=== PATIENT | female | born 1970 | race Caucasian/White ===

== ENCOUNTER 2019-02-24 10:16 | Day surgery (SDC) | payer OTHER, SELFPAY ==
[2019-02-24] VITALS (8 sets, daily range): BP systolic 111–143; BP diastolic 71–86; PULSE 67–98; RESP 10–17; TEMP 36.2–36.7; O2SAT 92–100; BMI 35.2
--- NOTE | 2019-02-24 | PATH_ITS ---
[facility] Accession Number: [id number] . 01 Material submitted: . PART A: small bowel - SMALL BOWEL BIOPSY PART B: gastrointestinal site - STOMACH BIOPSY . 02 Diagnosis: A. Small Bowel, Biopsy: Small bowel mucosa with no diagnostic abnormality. Negative for active inflammation, dysplasia, and malignancy. . B. Stomach, Biopsy: Antral and body-type mucosa with no diagnostic abnormality. Negative for Helicobacter organisms by immunohistochemistry. Negative for intestinal metaplasia by alcian blue stain. Negative for dysplasia and malignancy. MRV 02/26/2019 1453 Local . 02 Electronically signed: . Yumiko Britton MD, Pathologist NPI- [id number] . 01 Gross description: . Part A: SMALL BOWEL BIOPSY: Received in formalin are 2 fragment(s) of hung, soft tissue measuring 0.1 x 0.1 x 0.1 cm to 0.3 x 0.2 x 0.2 cm submitted entirely in 1 cassette(s) Part B: STOMACH BIOPSY: Received in formalin are 3 fragment(s) of hung, soft tissue measuring 0.1 x 0.1 x 0.1 cm to 0.2 x 0.2 x 0.1 cm submitted entirely in 1 cassette(s) /[facility] [place] 02/24/2019 2222 Local . 02 Microscopic: . B. An immunohistochemical stain was performed to evaluate for Helicobacter organisms and is negative. The control stain showed appropriate reactivity. An alcian blue stain was performed to evaluate for intestinal metaplasia and is negative. The control stain showed appropriate reactivity. . * This test was developed and its performance characteristics determined by [employer]. It has not been cleared or approved by the U.S. Food and Drug Administration. The FDA has determined that such clearance or approval is not necessary. This test is used for clinical purposes. It should not be regarded as investigational or for research. . 02 Pathologist provided ICD-10: K21.9 . 02 CPT . 519181, 284428, 982006, N81950 Specimen Comment: A duplicate report has been generated due to demographic updates. Performed at: 01 [facility] [address] [place] [address], [place], [place] [id number] MD Chinedu Shea MD Phone: [phone] Performed at: [facility] [address] [place], [place] [id number] MD Yumiko Britton MD Phone: [phone]
[2019-02-24] MEDS: SODIUM CHLORIDE 0.9% 1,000 ML 21 ML IV (10:59)
--- NOTE | 2019-02-24 11:35 | PM.HP.1 ---
History of Present Illness History of Present Illness Chief complaint: [id number] Patient History Medical History (Updated 02/24/19 @ 11:36 by Jareth Galvin MD) Endometriosis (Acute) Family & Social History Social History: household members family Meds Home Medications and Allergies Home Medications Medication Instructions Recorded Confirmed Type hydrochlorothiazide 12.5 mg PO DAILY 02/24/19 02/24/19 History lisinopril 10 mg PO DAILY 02/24/19 02/24/19 History naproxen sodium [Aleve] 220 mg PO DAILY 02/24/19 02/24/19 History naproxen-diphenhydramine [Aleve PM] 1 tab PO BEDTIME 02/24/19 02/24/19 History rabeprazole 20 mg PO DAILY 02/24/19 02/24/19 History Allergies Allergy/AdvReac Type Severity Reaction Status Date / Time No Known Drug Allergies Allergy Verified 02/24/19 10:39 Exam Vital Signs (past 8 hours): - 02/24/19 10:44 Temperature 97.3 F L Pulse Rate 67 Respiratory Rate 16 Blood Pressure 111/76 Pulse Oximetry 99 Oxygen Delivery Method Room Air Narrative Exam Narrative: Oropharynx free of lesions Chest clear to auscultation percussion Cardiac exam reveals no S3 or murmur Assessment & Plan Assessment & Plan narrative: Recurrent abdominal discomfort with history of H pylori rule out continued H pylori rule out celiac Upper endoscopy 0 performed with biopsies. Risks, benefits, alternatives have been explained.
--- NOTE | 2019-02-24 11:37 | PM.OP.ENDO ---
Operative Date/Time/Diagnoses Date of procedure: 02/24/19 Time of procedure: 11:37 Pre-op diagnosis: See indication and findings Procedure & Clinicians Study performed: EGD with biopsy Indications: Abdominal discomfort a history of H pylori rule out celiac Surgeon: Jareth Galvin Procedure Notes Procedure in detail: After informed consent was obtained the patient was placed in left lateral decubitus position. The video upper scope was placed into the oropharynx and with the patient's health swallowed into the esophagus. The esophagus, stomach, duodenum were carefully examined. On withdrawal, retroflexed view the GE junction was performed. The scope was removed. The patient tolerated procedure well. Blood loss none Complications none Sedation Total sedation time 11 minutes Versed 6 mg fentanyl 100 rectal g IV titration Findings 1. Normal esophagus 2. Patchy pre-pyloric and antral erythema biopsied to rule out Helicobacter. This is included with biopsies from the body of the stomach as well 3. Normal duodenal bulb and sweep. Biopsies taken to rule out celiac Will go over results with her by telephone decide how to proceed next. All all
[2019-02-24] MEDS: MIDAZOLAM 5 MG/5 ML VIAL IV (12:10)
[2019-02-24] MEDS: fentaNYL 250 MCG/5 ML INJ IV (12:12)
== END 2019-02-24 14:01 | disposition home or self-care (01) ==
PROVIDERS: Family Provider Family Medicine; PCP Family Medicine; Visit Provider Internal Medicine Gastroenterology
PROC: 0DJ08ZZ Inspection of Upper Intestinal Tract, Via Natural or Artificial Opening Endoscopic (ICD-10-PCS; CPT 43235; principal; 2019-02-24 11:30)
DX: K21.9 Gastro-esophageal reflux disease without esophagitis (principal)
CPT/HCPCS: 43239; J2250; J3010

== ENCOUNTER 2019-06-02 09:10 | Day surgery (SDC) | payer OTHER, SELFPAY ==
[2019-06-02] VITALS (8 sets, daily range): BP systolic 131–154; BP diastolic 80–92; PULSE 62–71; RESP 6–16; TEMP 36.1–36.6; O2SAT 90–97; BMI 34.7
--- NOTE | 2019-06-02 | PATH_ITS ---
[facility] Accession Number: [id number] . 01 Material submitted: . colon - RANDOM COLON BIOPSIES . 02 Diagnosis: Random Colon, Biopsies: Colonic mucosa with no diagnostic abnormality. Negative for active, chronic, and microscopic colitis. Negative for dysplasia and malignancy. . MRV 06/03/2019 1537 Local . 02 Electronically signed: . Yumiko Britton MD, Pathologist NPI- [id number] . 01 Gross description: . RANDOM COLON BIOPSIES: Received in formalin are 4 fragment(s) of hung, soft tissue measuring 0.1 x 0.1 x 0.1 cm to 0.2 x 0.2 x 0.1 cm submitted entirely in 1 cassette(s) /[facility] [place] 06/02/2019 2309 Local . 02 Pathologist provided ICD-10: R19.7 . 02 CPT . 427630 Performed at: 01 [facility] [address] [facility], [place], [place] [id number] MD Chinedu Shea MD Phone: [phone] Performed at: [address] [facility] [place] [address] [place], [place] [id number] MD Yumiko Britton MD Phone: [phone]
[2019-06-02] MEDS: SODIUM CHLORIDE 0.9% 1,000 ML 42 ML IV (10:16)
--- NOTE | 2019-06-02 10:53 | PM.HP.1 ---
History of Present Illness History of Present Illness Date Patient Seen: 06/02/19 Chief complaint: [id number] Narrative: Diarrhea and rectal bleeding Patient History Medical History (Updated 02/24/19 @ 11:36 by Jareth Galvin MD) Endometriosis (Acute) Family & Social History Social History: household members family Tobacco & Substance use: Smoking Status Never smoker alcohol intake current alcohol intake frequency a few times a week Substance Use Type does not use Meds Home Medications and Allergies Home Medications Medication Instructions Recorded Confirmed Type hydrochlorothiazide 12.5 mg PO DAILY 02/24/19 06/02/19 History lisinopril 10 mg PO DAILY 02/24/19 06/02/19 History naproxen sodium [Aleve] 220 mg PO DAILY 02/24/19 06/02/19 History rabeprazole 20 mg PO DAILY 02/24/19 06/02/19 History Allergies Allergy/AdvReac Type Severity Reaction Status Date / Time No Known Drug Allergies Allergy Verified 02/24/19 10:39 Exam Vital Signs (past 8 hours): - 06/02/19 10:25 Temperature 97.8 F Pulse Rate 71 Respiratory Rate 16 Blood Pressure 154/86 H Pulse Oximetry 97 Oxygen Delivery Method Room Air Narrative Exam Narrative: Oropharynx free of lesions Chest clear to auscultation percussion Cardiac exam reveals no S3 or murmur Assessment & Plan Assessment & Plan narrative: Diarrhea and rectal bleeding need for colonoscopy for further diagnosis. Hemorrhoidal banding being considered. Risks, benefits, alternatives have been explained.
--- NOTE | 2019-06-02 10:55 | PM.OP.ENDO ---
Operative Date/Time/Diagnoses Date of procedure: 06/02/19 Pre-op diagnosis: See indication and findings Procedure & Clinicians Study performed: Colonoscopy Same procedure as scheduled: Yes Indications: Rectal bleeding and diarrhea Surgeon: Jareth Galvin Procedure Notes Procedure in detail: After informed consent was obtained the patient was placed in left lateral decubitus position. The video colonoscope was introduced the rectum and slowly advanced to terminal ileum. On slow withdrawal mucosa was carefully examined. Preparation was good. The scope was removed patient tolerated the procedure well. Blood loss none Complications none Sedation Total sedation time 15 minutes Versed 6 mg fentanyl 150 micro g IV titration Findings 1. Normal terminal ileum 2. Normal colonoscopy to cecum. Biopsies taken to rule out microscopic colitis 3. [id number] internal hemorrhoids photographs taken Patient should follow up with Dr. infante in the office to discuss the diarrhea and also to continue the discussion about possible banding.
[2019-06-02] MEDS: fentaNYL 250 MCG/5 ML INJ IV (11:20)
[2019-06-02] MEDS: MIDAZOLAM 5 MG/5 ML VIAL IV (11:21)
== END 2019-06-02 12:38 | disposition home or self-care (01) ==
PROVIDERS: Family Provider Family Medicine; PCP Family Medicine; Referring Provider Family Medicine; Visit Provider Internal Medicine Gastroenterology
PROC: 0DJD8ZZ Inspection of Lower Intestinal Tract, Via Natural or Artificial Opening Endoscopic (ICD-10-PCS; CPT 45378; principal; 2019-06-02 11:00)
DX: K62.5 Hemorrhage of anus and rectum (principal); R19.7 Diarrhea, unspecified; K64.8 Other hemorrhoids
CPT/HCPCS: 45380; J2250; J3010

== ENCOUNTER 2023-03-16 12:54 | Emergency (ER) | payer OTHER, SELFPAY ==
[2023-03-16 13:09] VITALS: BP 173/96; PULSE 88; RESP 18; TEMP 36.9; O2SAT 97; BMI 34.4
--- NOTE | 2023-03-16 13:51 | ED_ITS ---
HPI - URI/Sore Throat <Vy Pro PA-C - Last Filed: 03/16/23 17:39> General Chief Complaint: Upper Respiratory Symptoms Stated Complaint: cough Time Seen by Provider: 03/16/23 13:34 Source: patient Mode of arrival: Ambulatory History of Present Illness HPI Narrative: 52yo F with 15 year smoking history, nonsmoker for the past 4 years presents with severe cough for 4 days in the setting of fatigue and mild URI symptoms for 11 days. Pt drives a school bus for work and has been out all week due to fatigue and not feeling well. Patient states she is mostly been feeling tired but also states that on Friday when she tried to go to work she was feeling foggy in her brain and felt she was not safe to work. Her cough came on severely on 4 days ago, it has been non-productive. She has been fee ling hot and cold the last few days, but has not checked her temperature. She has not had any vaccinations for COVID or flu. She has not done any home test for COVID. She has tried both DayQuil and NyQuil which have helped her symptoms a little bit. She has checked her temperature and has not found herself to have a fever. She denies sore throat, nausea, vomiting, chest pain, shortness of leticia ath with exertion, or any other symptoms. Patient does state that she does frequently have problems with sinus infections and congestion especially when she starts the school season in the fall but her lung symptoms and cough are different than her typical symptoms. She also states that her now ex- moved out about 3 months ago and he was in everyday smoker so she was exposed to smoke until the last 3 months on a regular basis despite having quit herself 4 years ago. Related Data Home Medications Medication Instructions Recorded Confirmed hydrochlorothiazide 12.5 mg tablet 12.5 mg PO DAILY 02/24/19 05/03/20 lisinopril 10 mg tablet 10 mg PO DAILY 02/24/19 05/03/20 naproxen sodium 220 mg tablet 220 mg PO DAILY 02/24/19 05/03/20 (Aleve) rabeprazole 20 mg tablet,delayed 20 mg PO DAILY 02/24/19 05/03/20 release azelastine 205.5 mcg (0.15 %) 1 spray intranasal BEDTIME 03/28/20 05/03/20 nasal spray ketoconazole 2 % topical cream 1 applic topical DAILY 03/28/20 05/03/20 loratadine 10 mg capsule 10 mg PO DAILY 03/28/20 05/03/20 Previous Rx's Medication Instructions Recorded amoxicillin 875 mg-potassium 1 tab PO Q12H PNA 10 days #20 tabs 03/16/23 clavulanate 125 mg tablet benzonatate 100 mg capsule 100 mg PO TID PRN cough 7 days #21 03/16/23 caps prednisone 20 mg tablet 40 mg (2 x 20 mg) PO DAILY 3 days 03/16/23 #6 tabs Allergies Allergy/AdvReac Type Severity Reaction Status Date / Time No Known Drug Allergies Allergy Verified 03/16/23 13:11 Review of Systems <Vy Pro PA-C - Last Filed: 03/16/23 17:39> Review of Systems Narrative: See HPI Patient History <Vy Pro PA-C - Last Filed: 03/16/23 17:39> Medical History Hypertension Endometriosis Surgical History H/O section Social History marital status: number of children: 3 household members: family Smoking Status: Never smoker alcohol intake: current Smoking Status: Never smoker alcohol intake frequency: a few times a week Substance Use Type: does not use Exam <Vy Pro PA-C - Last Filed: 03/16/23 17:39> Narrative Exam Narrative: GENERAL: [52] year old patient appears stated age. Well-developed patient, in mild distress, tired appearing, nontoxic. HEAD: Atraumatic. Normocephalic. EYES: Pupils equal round and reactive. Extraocular motions intact. No scleral icterus. No injection or drainage. ENT: Nose without bleeding, purulent drainage. Throat without erythema, tonsillar hypertrophy or exudate. Airway patent. NECK: Trachea midline. Non tender, no lymphadenopathy noted. CARDIOVASCULAR: Regular rate and rhythm without murmurs, gallops, or rubs. RESPIRATORY: Bilateral coarse lung sounds on auscultation. Breath sounds equal bilaterally. No wheezes, rales, or rhonchi. GASTROINTESTINAL: Abdomen nondistended. EXTREMITIES: No edema or joint tenderness. NEURO: AOx3. SKIN: No rash or erythema of visible areas Initial Vital Signs Initial Vital Signs: Vital Signs Temperature 98.5 F 03/16/23 13:09 Pulse Rate 88 03/16/23 13:09 Respiratory Rate 18 03/16/23 13:09 Blood Pressure 173/96 H 03/16/23 13:09 Pulse Oximetry 97 03/16/23 13:09 Oxygen Delivery Method Room Air 03/16/23 13:09 <Marcella Bingham DO - Last Filed: 03/18/23 09:40> Initial Vital Signs Initial Vital Signs: Vital Signs Temperature 98.5 F 03/16/23 13:09 Pulse Rate 88 03/16/23 13:09 Respiratory Rate 18 03/16/23 13:09 Blood Pressure 173/96 H 03/16/23 13:09 Pulse Oximetry 97 03/16/23 13:09 Oxygen Delivery Method Room Air 03/16/23 13:09 Course <Vy Pro PA-C - Last Filed: 03/16/23 17:39> Orders Ordered: ED Orders 03/16/23 13:50 XR chest 2V Stat 03/16/23 13:55 Covid-19 + FLU A/B + RSV - PCR Stat Vital Signs Vital signs: Vital Signs - 8 hr 03/16/23 13:09 03/16/23 15:59 Temperature 98.5 F Pulse Rate 88 86 Respiratory Rate 18 18 Blood Pressure 173/96 H 138/77 Pulse Oximetry 97 100 Oxygen Delivery Method Room Air Room Air <DO Grecia Fuller Last Filed: 03/18/23 09:40> Orders Ordered: ED Orders 03/16/23 13:50 XR chest 2V Stat 03/16/23 13:55 Covid-19 + FLU A/B + RSV - PCR Stat Vital Signs Vital signs: Vital Signs - 8 hr 03/16/23 13:09 03/16/23 15:59 Temperature 98.5 F Pulse Rate 88 86 Respiratory Rate 18 18 Blood Pressure 173/96 H 138/77 Pulse Oximetry 97 100 Oxygen Delivery Method Room Air Room Air MDM - URI/Sore Throat <ALANA Khan Last Filed: 03/16/23 17:39> Differential Diagnosis Differential diagnosis: Likely upper respiratory infection, viral infection, bronchitis, influenza and other (Pneumonia viral, pneumonia bacterial, atypical pneumonia) Medical Records Attestation: I reviewed the patient's medical records. Lab Data Attestation: I reviewed the patient's lab results. Labs: Lab Results 03/16/23 Range/Units 13:55 SARS-CoV-2 (PCR) Negative (Negative) Influenza A (RT-PCR) Flu a negative (NEGATIVE) Influenza B (RT-PCR) Flu b negative (NEGATIVE) RSV (PCR) Negative (Negative) Imaging Data Chest x-ray: Radiologist's Impression: [address] [address] XRay Report Signed Patient: Mindy Hollingsworth MR#: [id number] : 1970 Acct:[id number] Age/Sex: 52 / F Date of Service: 03/16/23 Loc: ED Accession Number: [id number] Procedure: XR chest 2V Ordering Provider: Vy Pro P.A-C PROCEDURE: XR CHEST 2V INDICATIONS: cough --sick x 11 days TECHNIQUE: 2 views of the chest were acquired. COMPARISON: None. FINDINGS: Surgical changes and devices: None. Lungs and pleura: Airspace opacity within the left mid lung. No pleural effusion. No pneumothorax. Mediastinum: Mediastinal contours are normal. Heart size is normal. Bones and chest wall: No suspicious bony abnormalities. Soft tissues appear unremarkable. IMPRESSION: Left midlung airspace opacity concerning for infection. Dictated by: Jony Monaco M.D. on 03/16/2023 at 14:15 Approved by: Jony Monaco M.D. on 03/16/2023 at 14:16 [facility] Narrative Medical decision making narrative: This is a 52-year-old female who presents with concern for severe cough for last 4 days with chills and fatigue. Patient has been sick with URI symptoms and fatigue for about 11 days now cough became severe on . She does have a long smoking history 15 years about a pack a day has not smoked for the past 4 years, given her symptoms and duration of symptoms as well as her smoking history chest x-ray is obtained today which is concerning for pneumonia showing a left mid lung airspace opacity concerning for infection. Basic viral testing with COVID flu and RSV returned negative today. Discussed options with the patient and placed her on antibiotics today, Augmentin as well as cough medicine benzonatate as well as a short course of prednisone. Encouraged patient to follow up closely with her primary care provider. Work note is provided for the next 2 days. Labs are not obtained as patient has unremarkable vitals and is generally well-appearing except for her harsh cough. I have low suspicion for sepsis or other etiology for her respiratory/cough symptoms. Return precautions provided, follow-up plan discussed, all questions answered. <Marcella Raúl Bingham, DO - Last Filed: 03/18/23 09:40> Lab Data Labs: Lab Results 03/16/23 Range/Units 13:55 SARS-CoV-2 (PCR) Negative (Negative) Influenza A (RT-PCR) Flu a negative (NEGATIVE) Influenza B (RT-PCR) Flu b negative (NEGATIVE) RSV (PCR) Negative (Negative) Discharge Plan Departure Patient Disposition: Home Clinical Impression: Pneumonia Qualifiers: Pneumonia type: due to unspecified organism Laterality: left Lung location: unspecified part of lung Qualified Code(s): J18.9 - Pneumonia, unspecified organism Activity Restrictions/Additional Instructions: *You have been diagnosed with [pneumonia (suspect bacterial)] *What to do: *Please continue to take your regular medications as directed. [2 ] New medication prescriptions sent to your pharmacy: [3 day course of prednisone (steroid medicine) as well as antibiotic, Augmentin for 10 day course] [ ] New medication written as a paper prescription [ ] No new medications given *Please follow up with your primary care provider in 2-3 days, call for an appointment. Let them know you were seen in the Emergency Department and that we ask that you be seen in follow up. We will electronically transmit a record of today's note if your PCP is in our system. Your chest x-ray is concerning for pneumonia, given that you have been sick for about 11 days with her cough coming on with severity about 4 days ago as well as some chills and generalized fatigue I think this is likely explained by the pneumonia and as we discussed antibiotics are hopefully going to get you feeling better, we are also doing a short course of steroid medicine which should reduce inflammation in your lungs. Given her smoking history I think this will also help. I did provide you with a work note if you would like so that you can take the next day or 2 off of work to recuperate. I hope that you feel better soon. Please do not hesitate to seek re-evaluation if you are not improving or certainly if you are worsening. *If you do not have a primary care provider please contact the [facility] Resource line at [phone]. They will ask some questions about your medical history and help get you set up with a doctor in the community. *Return to Emergency Department if you should have any new, worsening or concerning symptoms, such as [fever greater than 101 F, shaking chills, worsening pain, persistent vomiting or other bothersome symptoms] Prescriptions: New amoxicillin-pot clavulanate 875-125 mg tablet 1 tab PO Q12H 10 Days Qty: 20 0RF prednisone 20 mg tablet 40 mg PO DAILY 3 Days Qty: 6 0RF benzonatate 100 mg capsule 100 mg PO TID PRN (Reason: cough) 7 Days Qty: 21 0RF No Action loratadine 10 mg capsule 10 mg PO DAILY ketoconazole 2 % cream 1 applic topical DAILY azelastine 0.15 % (205.5 mcg) spray,non-aerosol 1 spray intranasal BEDTIME Rx Instructions: administer into each nostril rabeprazole 20 mg Tablet,Delayed Release (Dr/Ec) 20 mg PO DAILY lisinopril 10 mg Tablet 10 mg PO DAILY naproxen sodium [Aleve] 220 mg Tablet 220 mg PO DAILY hydrochlorothiazide 12.5 mg Tablet 12.5 mg PO DAILY Referrals: Charlee Scales DO [Primary Care Provider] - Stand Alone Forms: Patient Portal/API, Work Release Note ED Sign-out <Marcella Bingham DO - Last Filed: 03/18/23 09:40> Cosign ED Attending Tayler Attestation: I was immediately available in the department for consultation.
[2023-03-16 14:44] LABS: Influenza A - CEPHEID Flu A NEGATIVE (NEGATIVE); Influenza B - CEPHEID Flu B NEGATIVE (NEGATIVE); Respiratory Syncytial Virus Negative (Negative)
[2023-03-16 14:45] LABS: COVID-19 CEPHEID 4-PLEX PCR Negative (Negative)
[2023-03-16 15:59] VITALS: BP 138/77; PULSE 86; RESP 18; O2SAT 100
== END 2023-03-16 16:30 | disposition home or self-care (01) ==
PROVIDERS: Emergency Provider Student in an Organized Health Care Education/Training Program; Family Provider Family Medicine; PCP Family Medicine
DX: J18.9 Pneumonia, unspecified organism (principal)
CPT/HCPCS: 0241U; 71046; 99283